=== PATIENT | male | born 1980 | race Native Hawaiian/Other Pacific Islander ===

== ENCOUNTER 2018-06-06 08:52 | Day surgery (SDC) | payer BC | END 2018-06-06 11:01 | disposition home or self-care (01) | LOC: OR 08:52 | PROC: 3E0R33Z Introduction of Anti-inflammatory into Spinal Canal, Percutaneous Approach (ICD-10-PCS; principal; 2018-06-06) | PROC: B01BYZZ Fluoroscopy of Spinal Cord using Other Contrast (ICD-10-PCS; 2018-06-06) | DX: M51.16 Intervertebral disc disorders with radiculopathy, lumbar region (principal) | CPT/HCPCS: J1020 ==

== ENCOUNTER 2019-04-16 09:37 | Day surgery (SDC) | payer OTHER | END 2019-04-16 10:55 | disposition home or self-care (01) | LOC: OR 09:37 | PROC: 3E0R33Z Introduction of Anti-inflammatory into Spinal Canal, Percutaneous Approach (ICD-10-PCS; principal; 2019-04-16) | PROC: B01BYZZ Fluoroscopy of Spinal Cord using Other Contrast (ICD-10-PCS; 2019-04-16) | DX: M51.16 Intervertebral disc disorders with radiculopathy, lumbar region (principal) | CPT/HCPCS: J1020; J2001 ==

== ENCOUNTER 2019-10-29 09:20 | Day surgery (SDC) | payer OTHER | END 2019-10-29 11:20 | disposition home or self-care (01) | LOC: OR 09:20 | PROC: 3E0R33Z Introduction of Anti-inflammatory into Spinal Canal, Percutaneous Approach (ICD-10-PCS; principal; 2019-10-29) | PROC: B01BYZZ Fluoroscopy of Spinal Cord using Other Contrast (ICD-10-PCS; 2019-10-29) | DX: M50.121 Cervical disc disorder at C4-C5 level with radiculopathy (principal) | CPT/HCPCS: J1020 ==

== ENCOUNTER 2019-12-03 09:24 | Day surgery (SDC) | payer OTHER ==
[~2019-12-03] VITALS: Ht 2.5 cm; Wt 0.5 kg
== END 2019-12-03 10:04 | disposition home or self-care (01) ==
LOC: OR 09:24
PROC: 3E0R33Z Introduction of Anti-inflammatory into Spinal Canal, Percutaneous Approach (ICD-10-PCS; principal; 2019-12-03)
PROC: B01BYZZ Fluoroscopy of Spinal Cord using Other Contrast (ICD-10-PCS; 2019-12-03)
DX: M50.122 Cervical disc disorder at C5-C6 level with radiculopathy (principal)
CPT/HCPCS: J1020